=== PATIENT | female | born 1950 | race Caucasian/White ===

== ENCOUNTER 2019-08-17 11:15 | Outpatient (RCR) | payer MEDICARE, OTHER | END 2019-09-02 | disposition still patient (30) | LOC: PT | DX: M17.12 Unilateral primary osteoarthritis, left knee (principal); Z96.652 Presence of left artificial knee joint ==

== ENCOUNTER 2019-10-12 11:07 | Outpatient (RCR) | payer MEDICARE, OTHER | END 2020-01-10 | disposition still patient (30) | LOC: PT | DX: M25.511 Pain in right shoulder (principal) ==